=== PATIENT | female | born 1965 | race Caucasian/White ===

== ENCOUNTER 2019-10-19 22:02 | Emergency (ER) | payer BC ==
[~2019-10-19] VITALS: Ht 157.5 cm; Wt 52.2 kg
--- NOTE | 2019-10-19 22:31 | NUR ---
Dr. Grajeda at bedside for MSE
--- NOTE | 2019-10-19 22:39 | NUR ---
Xray at bedside
--- NOTE | 2019-10-19 23:32 | NUR ---
Patient discharged to home in stable condition. Written and verbal after care instructions given. Patient verbalizes understanding of instructions. Stressed follow up or return to ER for worsening s/s. Crutches dispensed. Pt instructed on proper use of crutches. Patient able to demonstrate correct use of crutches. Patient ambulated with steady gait. NAD noted
[2019-10-19 23:56] VITALS: BP 112/73
== END 2019-10-19 23:32 | disposition home or self-care (01) ==
LOC: ER 22:04
DX: S93.602A Unspecified sprain of left foot, initial encounter (principal); X50.1XXA Overexertion from prolonged static or awkward postures, initial encounter; Y93.89 Activity, other specified; Y92.89 Other specified places as the place of occurrence of the external cause; R26.2 Difficulty in walking, not elsewhere classified
CPT/HCPCS: 73610; 73630; A4663